=== PATIENT | male | born 1970 | race Two or more races ===

== ENCOUNTER 2020-05-27 06:40 | Inpatient (IN) | payer MEDICARE, MEDICAID ==
[~2020-05-27] VITALS: Ht 175.3 cm; Wt 110.2 kg
[~2020-05-27 06:40] MED LIST: ARIP1TAB7; DULO60CA; HYDR7.5T; SERAQUIL; SIMV40TA96; ZOLP10TA
[2020-05-27] MEDS ORDERED: SODIUM CHLORIDE 0.9% 1,000 ML IV ONE (07:15)
[2020-05-27] MEDS ORDERED: SODIUM CHLORIDE 0.9% 500 ML IV ONE (07:15)
[2020-05-27 07:45] LABS: Albumin 3.5 g/dL (3.4-5.0); Basophils # (auto) 0 10 ^3/uL (0-0.2); Basophils % (auto) 0.2 % (0.0-2.0); Calcium 9.1 mg/dL (8.5-10.1); Eosinophils # (auto) 0.2 10 ^3/uL (0-0.8); Eosinophils % (auto) 1.3 % (0.0-7.0); Hematocrit 39.5 % (41.0-53.0); Hemoglobin 13.7 g/dL (13.5-17.5); Lymphocytes # (auto) 1.7 10 ^3/uL (0.4-5.4); Lymphocytes % (auto) 14.6 % (10.0-50.0); Magnesium 2.3 mg/dL (1.6-2.6); Mean Corpuscular Hemoglobin 29.2 pg (28.0-32.0); Mean Corpuscular Hgb Conc. 34.6 g/dL (32.0-36.0); Mean Corpuscular Volume 84.4 fL (80.0-100.0); Monocytes # (auto) 0.6 10 ^3/uL (0-1.3); Monocytes % (auto) 5.2 % (0.0-12.0); Neutrophils # (auto) 9.4 10 ^3/uL (1.6-8.6); Neutrophils % (auto) 78.7 % (37.0-80.0); Platelet Count (auto) 365 10^3/uL (140-450); Potassium 3.3 mmol/L (3.5-5.1); Red Blood Cells 4.68 10^6/uL (4.5-5.90); Red Cell Distribution Width 13.1 % (11.8-14.3); White Blood Cell 11.9 10^3/uL (4.4-10.8)
[2020-05-27 07:48] LABS: BUN/Creatinine Ratio 9.3; Bilirubin, Total 0.4 mg/dL (0.2-1.0); Total Protein 8.2 g/dL (6.4-8.2)
[2020-05-27] MEDS ORDERED: FIN5T PO (07:48)
[2020-05-27] MEDS ORDERED: TAMS0.4C36 PO (07:48)
[2020-05-27] MEDS ORDERED: DULO1CAP6 PO (07:48)
[2020-05-27] MEDS ORDERED: ATOR20TA50 PO (07:48)
[2020-05-27] MEDS ORDERED: GEMF600T7 PO (07:48)
[2020-05-27] MEDS ORDERED: AMLO-483 PO (07:48)
[2020-05-27] MEDS ORDERED: HYDR-4072 PO (07:48)
[2020-05-27] MEDS ORDERED: OXYB10TA14 PO (07:48)
[2020-05-27] MEDS ORDERED: SITA100T7 PO (07:48)
[2020-05-27] MEDS ORDERED: BREX1TAB4 PO (07:48)
[2020-05-27] MEDS ORDERED: FUR20T PO (07:48)
[2020-05-27] MEDS ORDERED: GUAISYP12 PO (07:48)
[2020-05-27] MEDS ORDERED: DICL-164 PO (07:48)
[2020-05-27] MEDS ORDERED: POTA1TAB64 PO (07:48)
[2020-05-27] MEDS ORDERED: ZOLP10TA6 PO (07:50)
[2020-05-27 07:52] LABS: Urine WBC None Seen /hpf (0 - 3)
[2020-05-27 08:09] LABS: Urine Bacteria NONE SEEN /hpf (None Seen); Urine Blood Negative /uL (Negative); Urine Specific Gravity 1.006 (1.001-1.035)
[2020-05-27] MEDS ORDERED: POTASSIUM EFFERVESENT TAB 25 MEQ PO ONE (09:30)
[2020-05-27] MEDS ORDERED: CHOLECALCIFEROL (VITD3) 2,000 UNIT CAP PO ONE ×2 (09:30→11:30)
[2020-05-27] MEDS ORDERED: FAMOTIDINE 20 MG TAB PO ONE (09:30)
[2020-05-27] MEDS ORDERED: cefTRIAXone 1GM/50ML D5W 50 ML IV ONE (09:30)
[2020-05-27] MEDS ORDERED: AZITHROMYCIN 500MG/ 250ML 250 ML IV ONE (09:30)
[2020-05-27] MEDS ORDERED: ASCORBIC ACID 500 MG TAB PO ONE (09:30)
[2020-05-27] MEDS ORDERED: MORPHINE SULF INJ 2 MG/ML SYRINGE 1ML IV ONE (09:45)
[2020-05-27] MEDS ORDERED: ONDANSETRON HCL 4 MG/2 ML VIAL IV ONE (09:45)
[2020-05-27] MEDS ORDERED: LABETALOL HCL 5 MG/ML 4ML SYRINGE IV PRN (11:15)
[2020-05-27] MEDS ORDERED: DEXTROSE (50%) 50ML SYRG IV PRN (11:15)
[2020-05-27] MEDS ORDERED: MORPHINE SULF INJ 2 MG/ML SYRINGE 1ML IV PRN (11:15)
[2020-05-27] MEDS ORDERED: ACETAMINOPHEN 500 MG TAB PO PRN (11:15)
[2020-05-27] MEDS ORDERED: NITROGLYCERIN 0.4 MG SL TAB SL PRN (11:15)
[2020-05-27] MEDS ORDERED: ENOXAPARIN SOD 40 MG/0.4 ML SYRINGE SC ONE (11:30)
[2020-05-27] MEDS ORDERED: FUROSEMIDE 20 MG/2 ML VIAL IV ONE (11:30)
[2020-05-27] MEDS: InsuLIN REG 1unit/0.01ml Soln (100units/ml) SC SCH ×3 (11:30→22:28)
[2020-05-27] MEDS ORDERED: NICOTINE 21MG/24 HR TOPICAL PATCH TD ONE (11:30)
[2020-05-27] MEDS ORDERED: FINASTERIDE 5 MG TAB PO ONE (11:30)
[2020-05-27] MEDS ORDERED: DULoxetine HCL 30 MG CAP PO ONE (11:30)
[2020-05-27] MEDS ORDERED: ASCORBIC ACID 1,000 MG TAB PO ONE (11:30)
[2020-05-27] MEDS ORDERED: GEMFIBROZIL 600 MG TAB PO ONE (11:30)
[2020-05-27 11:53] LABS: CRP High Sensitivity 15.9 mg/dL (< 0.3)
[2020-05-27] MEDS ORDERED: OMEP-260 PO (12:00)
[2020-05-27] MEDS ORDERED: IBUP800T24 PO (12:00)
[2020-05-27] MEDS ORDERED: LINA145C PO (12:00)
[2020-05-27] MEDS ORDERED: METF-929 PO (12:00)
[2020-05-27] MEDS ORDERED: METH750T3 PO (12:00)
[2020-05-27] MEDS: DexAMETHasone SOD PHOS 10MG/1ML VIAL INJ IV SCH (12:28)
[2020-05-27] MEDS: ACCU-CHEK COMFORT CURVE STRIP VI SCH ×3 (12:30→22:24)
[2020-05-27] MEDS: ALBUTEROL SULF HFA 90MCG INH 200DOSE IN SCH ×2 (14:00→23:35)
[2020-05-27] MEDS: HYDROcodone-ACET 10/325MG TAB PO PRN ×2 (14:44→22:26)
[2020-05-27 16:45] VITALS: BP 124/81
[2020-05-27 16:57] VITALS: BP 108/73
[2020-05-27 20:00] VITALS: BP 149/97
[2020-05-27 21:34] VITALS: BP_SYST 149; BP_SYST 159; BP_DIAS 95; BP_DIAS 97
[2020-05-27] MEDS: BUDESONIDE (INHALATION) 180 MCG IH IN SCH (22:00)
[2020-05-27] MEDS: ATORVASTATIN 20 MG TAB PO SCH (22:25)
[2020-05-27] MEDS: DOXYCYCLINE 100MG/250ML 250 ML IV SCH (22:25)
[2020-05-27] MEDS: GEMFIBROZIL 600 MG TAB PO SCH (22:26)
[2020-05-28] VITALS (7 sets, daily range): BP systolic 121–147; BP diastolic 53–96
[2020-05-28] MEDS ORDERED: ZOLPIDEM TARTRATE 5 MG TAB PO ONE ×2 (00:30→21:45)
[2020-05-28] MEDS: ALBUTEROL SULF HFA 90MCG INH 200DOSE IN SCH ×5 (06:00→22:42)
[2020-05-28 06:01] LABS: Albumin 3.2 g/dL (3.4-5.0); Calcium 9.3 mg/dL (8.5-10.1); Potassium 4.1 mmol/L (3.5-5.1)
[2020-05-28 06:06] LABS: BUN/Creatinine Ratio 14.8; Bilirubin, Total 0.3 mg/dL (0.2-1.0); Total Protein 8.1 g/dL (6.4-8.2)
[2020-05-28] MEDS: ACCU-CHEK COMFORT CURVE STRIP VI SCH ×4 (06:32→23:10)
[2020-05-28] MEDS: InsuLIN REG 1unit/0.01ml Soln (100units/ml) SC SCH ×4 (06:32→23:10)
[2020-05-28 06:55] LABS: Basophils # (auto) 0 10 ^3/uL (0-0.2); Basophils % (auto) 0.2 % (0.0-2.0); Eosinophils # (auto) 0 10 ^3/uL (0-0.8); Eosinophils % (auto) 0.1 % (0.0-7.0); Hematocrit 38.3 % (41.0-53.0); Hemoglobin 13.6 g/dL (13.5-17.5); Lymphocytes # (auto) 1.4 10 ^3/uL (0.4-5.4); Lymphocytes % (auto) 13.9 % (10.0-50.0); Mean Corpuscular Hgb Conc. 35.5 g/dL (32.0-36.0); Mean Corpuscular Volume 84.5 fL (80.0-100.0); Monocytes # (auto) 0.9 10 ^3/uL (0-1.3); Monocytes % (auto) 8.3 % (0.0-12.0); Neutrophils % (auto) 77.5 % (37.0-80.0); Nucleated Red Blood Cells % 0.1 %; Platelet Count (auto) 442 10^3/uL (140-450); Red Blood Cells 4.53 10^6/uL (4.5-5.90); Red Cell Distribution Width 13.2 % (11.8-14.3); White Blood Cell 10.4 10^3/uL (4.4-10.8)
[2020-05-28] MEDS: HYDROcodone-ACET 10/325MG TAB PO PRN ×2 (07:58→20:13)
[2020-05-28] MEDS: DexAMETHasone SOD PHOS 10MG/1ML VIAL INJ IV SCH (09:13)
[2020-05-28] MEDS: FUROSEMIDE 20 MG/2 ML VIAL IV SCH (09:14)
[2020-05-28] MEDS: DOXYCYCLINE 100MG/250ML 250 ML IV SCH (09:14)
[2020-05-28] MEDS: ZINC SULFATE 220mg CAP or TAB PO SCH (09:14)
[2020-05-28] MEDS: DULoxetine HCL 30 MG CAP PO SCH (09:15)
[2020-05-28] MEDS: TAMSULOSIN HYDROCHLORIDE 0.4 MG CAP PO SCH (09:15)
[2020-05-28] MEDS: GEMFIBROZIL 600 MG TAB PO SCH (09:16)
[2020-05-28] MEDS: ASCORBIC ACID 1,000 MG TAB PO SCH (09:16)
[2020-05-28] MEDS: FINASTERIDE 5 MG TAB PO SCH (09:16)
[2020-05-28] MEDS: CHOLECALCIFEROL (VITD3) 2,000 UNIT CAP PO SCH (09:17)
[2020-05-28] MEDS: NICOTINE 21MG/24 HR TOPICAL PATCH TD SCH (09:17)
[2020-05-28] MEDS: BUDESONIDE (INHALATION) 180 MCG IH IN SCH ×3 (09:37→22:43)
[2020-05-28] MEDS ORDERED: ENOXAPARIN SOD 40 MG/0.4 ML SYRINGE SC SCH (10:00)
[2020-05-28] MEDS ORDERED: AZITHROMYCIN 250 MG TAB PO ONE (11:15)
[2020-05-28] MEDS ORDERED: cefTRIAXone 1GM/50ML D5W 50 ML IV ONE (11:15)
[2020-05-28] MEDS ORDERED: DEXTROSE (50%) 50ML SYRG IV PRN (14:30)
[2020-05-28] MEDS: ENOXAPARIN SOD 60 MG/0.6 ML SYRINGE SC SCH (21:02)
[2020-05-28] MEDS: ATORVASTATIN 20 MG TAB PO SCH (21:02)
[2020-05-29] MEDS: HYDROcodone-ACET 10/325MG TAB PO PRN ×4 (02:49→23:05)
[2020-05-29 05:36] VITALS: BP 135/85
[2020-05-29] MEDS: ACCU-CHEK COMFORT CURVE STRIP VI SCH ×3 (06:00→17:02)
[2020-05-29] MEDS: InsuLIN REG 1unit/0.01ml Soln (100units/ml) SC SCH ×3 (06:00→17:02)
[2020-05-29] MEDS: ALBUTEROL SULF HFA 90MCG INH 200DOSE IN SCH ×3 (07:28→21:45)
[2020-05-29] MEDS: BUDESONIDE (INHALATION) 180 MCG IH IN SCH ×2 (07:29→21:44)
[2020-05-29 08:00] VITALS: BP 133/96
[2020-05-29 08:35] VITALS: BP 132/89
[2020-05-29] MEDS: ENOXAPARIN SOD 60 MG/0.6 ML SYRINGE SC SCH ×2 (09:04→21:35)
[2020-05-29] MEDS: FINASTERIDE 5 MG TAB PO SCH (09:04)
[2020-05-29] MEDS: AZITHROMYCIN 250 MG TAB PO SCH (09:04)
[2020-05-29] MEDS: cefTRIAXone 1GM/50ML D5W 50 ML IV SCH (09:29)
[2020-05-29] MEDS: DexAMETHasone SOD PHOS 10MG/1ML VIAL INJ IV SCH (09:29)
[2020-05-29] MEDS: DULoxetine HCL 30 MG CAP PO SCH (09:29)
[2020-05-29] MEDS: ZINC SULFATE 220mg CAP or TAB PO SCH (09:29)
[2020-05-29] MEDS: TAMSULOSIN HYDROCHLORIDE 0.4 MG CAP PO SCH (09:30)
[2020-05-29] MEDS: ASCORBIC ACID 1,000 MG TAB PO SCH (09:30)
[2020-05-29] MEDS: NICOTINE 21MG/24 HR TOPICAL PATCH TD SCH (09:31)
[2020-05-29] MEDS: CHOLECALCIFEROL (VITD3) 2,000 UNIT CAP PO SCH (09:31)
[2020-05-29] MEDS: FUROSEMIDE 20 MG/2 ML VIAL IV SCH (09:32)
[2020-05-29] MEDS ORDERED: DICLOFENAC 75 MG TAB PO PRN (13:00)
[2020-05-29 13:17] VITALS: BP 135/94
[2020-05-29 17:13] VITALS: BP 137/93
[2020-05-29] MEDS: ATORVASTATIN 20 MG TAB PO SCH (21:35)
[2020-05-29 21:41] VITALS: BP 142/102
[2020-05-29] MEDS: ZOLPIDEM TARTRATE 5 MG TAB PO PRN (22:31)
[2020-05-30] MEDS: ACCU-CHEK COMFORT CURVE STRIP VI SCH ×4 (00:32→18:12)
[2020-05-30 05:19] VITALS: BP 122/78
[2020-05-30] MEDS: HYDROcodone-ACET 10/325MG TAB PO PRN ×3 (05:25→18:12)
[2020-05-30] MEDS: InsuLIN REG 1unit/0.01ml Soln (100units/ml) SC SCH ×4 (06:00→18:18)
[2020-05-30] MEDS: ALBUTEROL SULF HFA 90MCG INH 200DOSE IN SCH ×3 (07:15→21:18)
[2020-05-30] MEDS: BUDESONIDE (INHALATION) 180 MCG IH IN SCH ×2 (07:15→21:18)
[2020-05-30 09:00] VITALS: BP 136/82
[2020-05-30] MEDS: NICOTINE 21MG/24 HR TOPICAL PATCH TD SCH (10:00)
[2020-05-30] MEDS: FUROSEMIDE 20 MG/2 ML VIAL IV SCH (10:47)
[2020-05-30] MEDS: DexAMETHasone SOD PHOS 10MG/1ML VIAL INJ IV SCH (10:47)
[2020-05-30] MEDS: cefTRIAXone 1GM/50ML D5W 50 ML IV SCH (10:47)
[2020-05-30] MEDS: FINASTERIDE 5 MG TAB PO SCH (10:48)
[2020-05-30] MEDS: TAMSULOSIN HYDROCHLORIDE 0.4 MG CAP PO SCH (10:48)
[2020-05-30] MEDS: DULoxetine HCL 30 MG CAP PO SCH (10:48)
[2020-05-30] MEDS: ZINC SULFATE 220mg CAP or TAB PO SCH (10:48)
[2020-05-30] MEDS: CHOLECALCIFEROL (VITD3) 2,000 UNIT CAP PO SCH (10:49)
[2020-05-30] MEDS: ASCORBIC ACID 1,000 MG TAB PO SCH (10:49)
[2020-05-30] MEDS: ENOXAPARIN SOD 60 MG/0.6 ML SYRINGE SC SCH ×2 (10:49→22:03)
[2020-05-30] MEDS: AZITHROMYCIN 250 MG TAB PO SCH (10:49)
[2020-05-30 11:45] VITALS: BP 123/58
[2020-05-30 13:00] VITALS: BP 121/85
[2020-05-30 17:00] VITALS: BP 120/85
[2020-05-30 21:30] VITALS: BP 140/89
[2020-05-30] MEDS ORDERED: LINZESS 145 MCG PO SCH (22:00)
[2020-05-30] MEDS: ZOLPIDEM TARTRATE 5 MG TAB PO PRN (22:03)
[2020-05-30] MEDS: ATORVASTATIN 20 MG TAB PO SCH (22:03)
[2020-05-31] MEDS: ACCU-CHEK COMFORT CURVE STRIP VI SCH ×4 (00:01→18:00)
[2020-05-31] MEDS: HYDROcodone-ACET 10/325MG TAB PO PRN ×3 (01:24→16:01)
[2020-05-31 05:00] VITALS: BP 114/72
[2020-05-31] MEDS: InsuLIN REG 1unit/0.01ml Soln (100units/ml) SC SCH ×4 (05:17→18:00)
[2020-05-31 06:03] LABS: Hematocrit 44.2 % (41.0-53.0); Hemoglobin 15.4 g/dL (13.5-17.5); Mean Corpuscular Hemoglobin 29.4 pg (28.0-32.0); Mean Corpuscular Hgb Conc. 34.7 g/dL (32.0-36.0); Mean Corpuscular Volume 84.6 fL (80.0-100.0); Platelet Count (auto) 701 10^3/uL (140-450); Red Blood Cells 5.23 10^6/uL (4.5-5.90); Red Cell Distribution Width 12.7 % (11.8-14.3); White Blood Cell 16.3 10^3/uL (4.4-10.8)
[2020-05-31 06:08] LABS: Basophils % (manual) 0 (0.0-2.0); Blast Cells 0; Eosinophils % (manual) 0 (0-7); Metamyelocytes % 0; Promyelocytes % 0; Reactive Lymphocytes 0
[2020-05-31 06:16] LABS: Potassium 3.9 mmol/L (3.5-5.1)
[2020-05-31 06:17] LABS: INR 1.12 (0.9-1.15); Partial Thromboplastin Time 36.1 sec (23.0-31.2)
[2020-05-31 06:21] LABS: Albumin 3.4 g/dL (3.4-5.0); BUN/Creatinine Ratio 22.3; Calcium 9.9 mg/dL (8.5-10.1); Magnesium 2.6 mg/dL (1.6-2.6)
[2020-05-31 06:23] LABS: Bilirubin, Total 0.4 mg/dL (0.2-1.0); Phosphorus 3.8 mg/dL (2.5-4.90); Total Protein 8.5 g/dL (6.4-8.2)
[2020-05-31 06:40] LABS: Band Neutrophils % (manual) 0; Lymphocytes % (manual) 18 (10.0-50.0); Monocytes % (manual) 4 (0-12); Myelocytes % 3
[2020-05-31] MEDS: ALBUTEROL SULF HFA 90MCG INH 200DOSE IN SCH ×2 (07:33→14:22)
[2020-05-31] MEDS: BUDESONIDE (INHALATION) 180 MCG IH IN SCH (07:34)
[2020-05-31 08:52] VITALS: BP 137/88
[2020-05-31] MEDS: NICOTINE 21MG/24 HR TOPICAL PATCH TD SCH (08:52)
[2020-05-31] MEDS: cefTRIAXone 1GM/50ML D5W 50 ML IV SCH (09:38)
[2020-05-31] MEDS: DexAMETHasone SOD PHOS 10MG/1ML VIAL INJ IV SCH (09:38)
[2020-05-31] MEDS: ZINC SULFATE 220mg CAP or TAB PO SCH (09:39)
[2020-05-31] MEDS: TAMSULOSIN HYDROCHLORIDE 0.4 MG CAP PO SCH (09:39)
[2020-05-31] MEDS: DULoxetine HCL 30 MG CAP PO SCH (09:39)
[2020-05-31] MEDS: FINASTERIDE 5 MG TAB PO SCH (09:39)
[2020-05-31] MEDS: AZITHROMYCIN 250 MG TAB PO SCH (09:40)
[2020-05-31] MEDS: ENOXAPARIN SOD 60 MG/0.6 ML SYRINGE SC SCH (09:40)
[2020-05-31] MEDS: ASCORBIC ACID 1,000 MG TAB PO SCH (09:40)
[2020-05-31] MEDS: CHOLECALCIFEROL (VITD3) 2,000 UNIT CAP PO SCH (09:40)
[2020-05-31] MEDS ORDERED: FUROSEMIDE 20 MG/2 ML VIAL IV SCH (10:00)
[2020-05-31 12:51] VITALS: BP 135/82
[2020-05-31] MEDS ORDERED: TAMS0.4C36 PO (16:52)
[2020-05-31] MEDS ORDERED: NIFE1TAB36 PO (16:52)
[2020-05-31] MEDS ORDERED: METF-929 PO (16:52)
[2020-05-31] MEDS ORDERED: AZIT500T66 PO (16:52)
[2020-05-31] MEDS ORDERED: LINA145C PO (16:52)
[2020-05-31] MEDS ORDERED: FUR20T PO (16:52)
[2020-05-31] MEDS ORDERED: DEX4T PO (16:52)
[2020-05-31] MEDS ORDERED: ATOR20TA50 PO (16:52)
[2020-05-31] MEDS ORDERED: POTA1TAB64 PO (16:52)
[2020-05-31] MEDS ORDERED: SITA50TA PO (16:52)
[2020-05-31] MEDS ORDERED: METH750T3 PO (16:52)
[2020-05-31] MEDS ORDERED: OXYB10TA14 PO (16:52)
[2020-05-31] MEDS ORDERED: FIN5T PO (16:52)
[2020-05-31] MEDS ORDERED: OMEP-260 PO (16:52)
[2020-05-31] MEDS ORDERED: GEMF600T7 PO (16:52)
[2020-05-31] MEDS ORDERED: BREX1TAB4 PO (16:52)
[2020-05-31 17:00] VITALS: BP 140/82
== END 2020-05-31 18:40 | disposition home or self-care (01) | DRG 871 ==
LOC: EDBD 06:40 → ER 06:45 → TELE 06:46 → TELE-EAST 12:18
PROVIDERS: ADMIT Nurse Practitioner Acute Care; ATTEND Internal Medicine Nephrology
DX: A41.89 Other specified sepsis (principal); U07.1 COVID-19; J96.01 Acute respiratory failure with hypoxia; J12.89 Other viral pneumonia; J44.0 Chronic obstructive pulmonary disease with (acute) lower respiratory infection; F11.20 Opioid dependence, uncomplicated; E78.5 Hyperlipidemia, unspecified; N40.0 Benign prostatic hyperplasia without lower urinary tract symptoms; F31.9 Bipolar disorder, unspecified; E87.6 Hypokalemia; E66.01 Morbid (severe) obesity due to excess calories; G89.4 Chronic pain syndrome; M19.90 Unspecified osteoarthritis, unspecified site; E11.65 Type 2 diabetes mellitus with hyperglycemia; E78.1 Pure hyperglyceridemia; E88.81 Metabolic syndrome and other insulin resistance; I10 Essential (primary) hypertension; K58.9 Irritable bowel syndrome, unspecified; M79.7 Fibromyalgia; R65.20 Severe sepsis without septic shock; M54.5 Low back pain; Z96.659 Presence of unspecified artificial knee joint; B95.0 Streptococcus, group A, as the cause of diseases classified elsewhere; Z79.84 Long term (current) use of oral hypoglycemic drugs; Z90.49 Acquired absence of other specified parts of digestive tract; Z68.35 Body mass index [BMI] 35.0-35.9, adult; Z79.899 Other long term (current) drug therapy; Z87.891 Personal history of nicotine dependence; Z71.6 Tobacco abuse counseling
CPT/HCPCS: 36415; 36600; 71045; 80053; 81001; 82728; 82805; 82962; 83036; 83615; 83735; 83880; 84100; 84443; 85007; 85025; 85027; 85379; 85610; 85730; 86141; 86710; 87040; 87426; 87880; 93005; 94640; 96365; 96367; 96375; G0378; J0696; J1100; J1815; J2405; J3490

== ENCOUNTER → 2024-02-08 | Outpatient (CLI) | payer MEDICARE, MEDICAID ==
[~2024-02-08] MED LIST changes: -ARIP1TAB7; +ATOR20TA50 PO; +AZIT500T66 PO; +BREX1TAB4 PO; +DEX4T PO; +DULO1CAP6 PO; -DULO60CA; +FIN5T PO; +FUR20T PO; +GEMF-66 PO; -HYDR7.5T; +LINA145C PO; +METF-929 PO; +METH-1182 PO; +NIFE1TAB36 PO; +OMEP1CAP70 PO; +OXYB10TA14 PO; +POTA1TAB64 PO; -SERAQUIL; -SIMV40TA96; +SITA50TA PO; +TAMS0.4C36 PO; -ZOLP10TA
== END | disposition home or self-care (01) ==
LOC: XYW 07:21
DX: K21.9 Gastro-esophageal reflux disease without esophagitis (principal); R13.10 Dysphagia, unspecified; R14.0 Abdominal distension (gaseous); K59.00 Constipation, unspecified; K76.0 Fatty (change of) liver, not elsewhere classified
CPT/HCPCS: 78264; A9541

== ENCOUNTER 2024-04-12 13:55 | Emergency (ER) | payer MEDICARE, MEDICAID ==
[~2024-04-12] VITALS: Ht 177.8 cm; Wt 106.0 kg
[~2024-04-12 13:55] MED LIST changes: -FUR20T PO; +FURO20TA4 PO; -TAMS0.4C36 PO; +TAMS0.4C39 PO
[2024-04-12] MEDS ORDERED: HYDR-4798 PO (14:14)
[2024-04-12 14:28] VITALS: BP 118/73; PULSE 107; RESP 18; TEMP 99; O2SAT 97
[2024-04-12] MEDS ORDERED: LORA-1123 PO (14:32)
[2024-04-12] MEDS: LORazepam 0.5 MG TAB PO ONE (14:35)
== END 2024-04-12 14:47 | disposition home or self-care (01) ==
LOC: ER 13:55
DX: F41.9 Anxiety disorder, unspecified (principal); E11.9 Type 2 diabetes mellitus without complications; E78.5 Hyperlipidemia, unspecified; I10 Essential (primary) hypertension; Z76.0 Encounter for issue of repeat prescription; Z94.9 Transplanted organ and tissue status, unspecified